=== PATIENT | female | born 1965 | race Caucasian/White ===

== ENCOUNTER 2019-06-11 21:10 | Emergency (ER) | payer MEDICARE, MEDICAID ==
[~2019-06-11] VITALS: Ht 157.5 cm; Wt 104.8 kg
[2019-06-11 22:00] LABS: Urine WBC None Seen /hpf (0 - 5)
[2019-06-11 22:23] LABS: Urine Bacteria NONE SEEN /hpf (None Seen); Urine Blood Negative /uL (Negative); Urine Specific Gravity 1.008 (1.001-1.035)
[2019-06-11] MEDS ORDERED: ONDANSETRON ODT 4 MG TAB PO ONE (23:00)
[2019-06-11] MEDS ORDERED: ONDANSETRON HCL 4 MG/2 ML VIAL IV ONE (23:00)
[2019-06-11] MEDS ORDERED: HYDROcodone-ACET 5/325MG TAB PO ONE ×2 (23:00)
[2019-06-11 23:10] LABS: INR 2.65 (0.9-1.15); Partial Thromboplastin Time 39.5 sec (23.64-32.05)
[2019-06-12 00:51] VITALS: BP 133/57
[2019-06-12] MEDS ORDERED: HYDROcodone-ACET 10/325MG TAB PO ONE (02:00)
[2019-06-12] MEDS ORDERED: NEOMYCIN-BACITRACIN-POLYM 15GM TOP OINT TOP ONE (02:00)
[2019-06-12] MEDS ORDERED: NEOMYCIN-BACITRACIN-POLYM UNITDOSE PKG TOP OINT TOP ONE (02:00)
== END 2019-06-12 03:13 | disposition home or self-care (01) ==
LOC: ER 21:21
DX: S16.1XXA Strain of muscle, fascia and tendon at neck level, initial encounter (principal); S00.83XA Contusion of other part of head, initial encounter; G89.4 Chronic pain syndrome; Z79.01 Long term (current) use of anticoagulants; I10 Essential (primary) hypertension; Z88.5 Allergy status to narcotic agent; Z88.6 Allergy status to analgesic agent; W19.XXXA Unspecified fall, initial encounter; Y93.89 Activity, other specified; Y92.89 Other specified places as the place of occurrence of the external cause; Y99.8 Other external cause status
CPT/HCPCS: 36415; 70450; 70486; 72125; 81001; 85610; 85730; 99285; Q0162